=== PATIENT | female | born 1970 | race Caucasian/White ===

== ENCOUNTER 2016-10-14 05:52 | Emergency (ER) | payer OTHER ==
[~2016-10-14] VITALS: Ht 170.2 cm; Wt 78.0 kg
[2016-10-14 05:55] VITALS: BP 179/139; PULSE 115; RESP 28; O2SAT 94
[2016-10-14 06:11] VITALS: BP 129/83; PULSE 100; RESP 30; TEMP 98.9; O2SAT 89
[2016-10-14] MEDS ORDERED: SODIUM CHLORIDE 0.9% FLUSH 5 ML FLUSH IVF PRN (06:15)
[2016-10-14] MEDS ORDERED: methylPREDNISolone SOD SUCC 125 MG/2 ML VIAL IVP ONE (06:15)
[2016-10-14] MEDS: RESP: ALBUTEROL 2.5 MG/IPRATROPIUM 0.5 MG NEB (SCH) INH ×2 (06:17→06:18)
[2016-10-14 06:27] VITALS: O2SAT 97
--- NOTE | 2016-10-14 06:31 | RADRPT ---
EXAM DATE/TIME: 10/14/2016 06:09 [facility] COMPARISON: No previous studies available for comparison. INDICATIONS : Shortness of breath. MEDICAL HISTORY : Asthma. SURGICAL HISTORY : None. ENCOUNTER: Initial ACUITY: 1 day PAIN SCORE: 0/10 LOCATION: Bilateral chest FINDINGS: A single view of the chest demonstrates the lungs to be symmetrically aerated without evidence of mas s, infiltrate or effusion. The cardiomediastinal contours are unremarkable. Osseous structures are intact. CONCLUSION: No acute disease. Toni Olmstead MD on October 14, 2016 at 6:30 Board Certified Radiologist. This report was verified electronically.
[2016-10-14 06:42] VITALS: BP 169/78; PULSE 95; RESP 24; O2SAT 100
--- NOTE | 2016-10-14 06:43 | PD ---
HPI Chief Complaint: Respiratory Distress Time Seen by Provider: 06:11 Travel History International Travel<30 days: No Contact w/Intl Traveler<30days: No Traveled to known affect area: No History of Present Illness HPI 46 yo F reports a history of COPD. She woke up quite dyspneic. Her inhaler did not help. She denies chest pain. She has not taken steroids for at least 2 months. Location pulmonary. Onset somewhat sudden. Severity moderate. Timing constant. PFSH Past Medical History COPD: Yes Social History Tobacco Use: Yes (cigarrettes then e-cigarettes times last 7 years) Allergies-Medications (Allergen,Severity, Reaction): Coded Allergies: No Known Allergies (Unverified , 10/14/16) Review of Systems Except as stated in HPI: all other systems reviewed are Neg Physical Exam Narrative GENERAL: 46-year-old female mildly dyspneic SKIN: Warm and dry. HEAD: Atraumatic. Normocephalic. EYES: Pupils equal and round. No scleral icterus. No injection or drainage. ENT: No nasal bleeding or discharge. Mucous membranes pink and moist. NECK: Trachea midline. No JVD. CARDIOVASCULAR: Tachycardia. Regular rhythm. RESPIRATORY: Tachypnea. Wheezing present. GASTROINTESTINAL: Abdomen soft, non-tender, nondistended. Hepatic and splenic margins not palpable. MUSCULOSKELETAL: No obvious deformities. No clubbing. No cyanosis. No edema. NEUROLOGICAL: Awake and alert. No obvious cranial nerve deficits. Motor grossly within normal limits. Normal speech. PSYCHIATRIC: Appropriate mood and affect; insight and judgment normal. Data Data Last Documented VS Vital Signs Date Time Temp Pulse Resp B/P Pulse Ox O2 Delivery O2 Flow Rate FiO2 10/14/16 06:27 97 Nasal Cannula 2.00 10/14/16 06:11 98.9 100 30 129/83 Vital signs reviewed Orders Complete Blood Count With Diff (10/14/16 06:11) Basic Metabolic Panel (Bmp) (10/14/16 06:11) Iv Access Insert/Monitor (10/14/16 06:11) Ecg Monitoring (10/14/16 06:11) Oximetry (10/14/16 06:11) Oxygen Administration (10/14/16 06:11) Chest, Single Ap (10/14/16 06:11) Sodium Chloride 0.9% Flush (Ns Flush) (10/14/16 06:15) Methylprednisolone So Succ Inj (Solumedr (10/14/16 06:15) Albuterol-Ipratropium Neb (Duoneb Neb) (10/14/16 06:15) MDM Medical Decision Making Medical Screen Exam Complete: Yes Emergency Medical Condition: Yes Medical Record Reviewed: Yes Differential Diagnosis Asthma exacerbation, pneumonia, pneumothorax, COPD exacerbation Narrative Course Solu-Medrol and 3 rounds of breathing treatments started. Oncoming provider to follow-up blood work and disposition patient appropriately. Jose James MD Oct 14, 2016 06:43
[2016-10-14 07:07] LABS: AUTOMATED NEUTROPHIL # 5.3 TH/MM3 (1.8-7.7); BASOPHIL # 0.1 TH/MM3 (0-0.2); BASOPHIL % 0.8 % (0.0-2.0); EOSINOPHIL # 0.4 TH/MM3 (0-0.4); EOSINOPHIL % 4.4 % (0.0-4.0); HEMATOCRIT 43.7 % (35.0-46.0); HEMO FLAGS DIFF FINAL; LYMPH % 35.7 % (9.0-44.0); LYMPHOCYTE # 3.6 TH/MM3 (1.0-4.8); MEAN CORPUSCULAR HEMOGLOBIN 27.4 PG (27.0-34.0); MEAN CORPUSCULAR HGB CONC 33.8 % (32.0-36.0); MONO % 5.9 % (0.0-8.0); NEUT % 53.2 % (16.0-70.0); PLATELET COUNT 243 TH/MM3 (150-450); RED BLOOD COUNT 5.39 MIL/MM3 (4.00-5.30); RED CELL DISTRIBUTION WIDTH 13.8 % (11.6-17.2)
[2016-10-14] MEDS ORDERED: FLUTI110I INH (07:28)
[2016-10-14] MEDS ORDERED: VENTAER INH (07:28)
[2016-10-14] MEDS ORDERED: PRED20 PO (07:28)
--- NOTE | 2016-10-14 07:28 | PD ---
Physical Exam Narrative Received sign out from previous provider to reevaluate and disposition. 46yo F with COPD here with sob. Pt reevaluated at bedside after duonebs and methylprednisolone 125mg IV. States she is feeling much better and speaking in complete sentences. Pt is saturating at 93-94% on RA and has mild end expiratory wheezing bilaterally. No retractions. Labs reviewed, no leukocytosis. BMP unremarkable. CXR showed no acute disease. Pt wants to go home and agreed to return if symptoms worsen. Return precautions given. Data Data Last Documented VS Vital Signs Date Time Temp Pulse Resp B/P Pulse Ox O2 Delivery O2 Flow Rate FiO2 10/14/16 07:27 98 Nasal Cannula 2 10/14/16 06:42 95 24 169/78 10/14/16 06:11 98.9 Orders Complete Blood Count With Diff (10/14/16 06:11) Basic Metabolic Panel (Bmp) (10/14/16 06:11) Iv Access Insert/Monitor (10/14/16 06:11) Ecg Monitoring (10/14/16 06:11) Oximetry (10/14/16 06:11) Oxygen Administration (10/14/16 06:11) Chest, Single Ap (10/14/16 06:11) Sodium Chloride 0.9% Flush (Ns Flush) (10/14/16 06:15) Methylprednisolone So Succ Inj (Solumedr (10/14/16 06:15) Albuterol-Ipratropium Neb (Duoneb Neb) (10/14/16 06:15) Electrocardiogram (10/14/16 06:23) Labs Laboratory Tests Test 10/14/16 06:41 White Blood Count 10.0 TH/MM3 Red Blood Count 5.39 MIL/MM3 Hemoglobin 14.8 GM/DL Hematocrit 43.7 % Mean Corpuscular Volume 81.0 FL Mean Corpuscular Hemoglobin 27.4 PG Mean Corpuscular Hemoglobin 33.8 % Concent Red Cell Distribution Width 13.8 % Platelet Count 243 TH/MM3 Mean Platelet Volume 9.0 FL Neutrophils (%) (Auto) 53.2 % Lymphocytes (%) (Auto) 35.7 % Monocytes (%) (Auto) 5.9 % Eosinophils (%) (Auto) 4.4 % Basophils (%) (Auto) 0.8 % Neutrophils # (Auto) 5.3 TH/MM3 Lymphocytes # (Auto) 3.6 TH/MM3 Monocytes # (Auto) 0.6 TH/MM3 Eosinophils # (Auto) 0.4 TH/MM3 Basophils # (Auto) 0.1 TH/MM3 CBC Comment DIFF FINAL Differential Comment Sodium Level 137 MEQ/L Potassium Level 4.0 MEQ/L Chloride Level 104 MEQ/L Carbon Dioxide Level 25.2 MEQ/L Anion Gap 8 MEQ/L Blood Urea Nitrogen 18 MG/DL Creatinine 0.82 MG/DL Estimat Glomerular Filtration 74 ML/MIN Rate Random Glucose 112 MG/DL Calcium Level 9.6 MG/DL MDM Supervised Visit with JOSE LUIS: No Diagnosis Primary Impression: COPD exacerbation Patient Instructions: General Instructions Departure Forms: Tests/Procedures Additional Instruction: Please follow up with your PMD in 3-7 days. Return to the ED if symptoms worsen. Med/Other Pt SpecificInfo: Prescription(s) given Scripts Fluticasone 12 GM Inh (Flovent Hfa 12 GM Inh)110 Mcg/Act Inh2 Puff INH BID #1 INHALER Ref 0 Prov:Tamar Peace DO 10/14/16 Prednisone 20 Mg Tab20 Mg PO BID 5 Days Ref 0 Prov:Tamar Peace DO 10/14/16 Albuterol 18 GM Inh (Ventolin Hfa 18 GM Inh)90 Mcg/Act Aer2 Puff INH Q4H PRN ( SHORTNESS OF BREATH) #1 INHALER Ref 0 Prov:Tamar Peace DO 10/14/16 Tamar Peace DO Oct 14, 2016 07:28
[2016-10-14 07:31] LABS: BICARBONATE 25.2 MEQ/L (21.0-32.0)
[2016-10-14 08:24] VITALS: O2SAT 92
--- NOTE | 2016-10-14 17:05 | EKG ---
Date Performed: 10/14/2016 Time Performed: 06:23:23 PTAGE: 46 years EKG: Sinus rhythm NORMAL ECG NO PREVIOUS TRACING DOCTOR: Eyad Santamaria Interpretating Date/Time 10/14/2016 17:02:14
== END 2016-10-14 08:39 | disposition home or self-care (01) ==
LOC: NEPE 05:52
DX: J44.1 Chronic obstructive pulmonary disease with (acute) exacerbation (principal); F17.200 Nicotine dependence, unspecified, uncomplicated; R06.82 Tachypnea, not elsewhere classified
CPT/HCPCS: 71010; 80048; 85025; 93005; 94640; 94664; 96374; 99283; J2930

== ENCOUNTER → 2016-12-30 | Outpatient (CLI) | payer OTHER ==
[~2016-12-30] MED LIST: ALBU0.08 NEB; AZIT250T3 PO; FLUT1INH7 INH; FLUTI110I INH; HYDR12.57 PO; METF500T PO; NEBULIZER1 MI1; PRED-503 PO; PRED20 PO; VENTAER INH
--- NOTE | 2017-01-01 10:36 | RSPPFT ---
DATE OF PROCEDURE: 12/30/16 COMMENTS: Spirometry show FVC of 3.7 at 101% of predicted, FEV1 of 2.0 at 71%, FEV1/FVC ratio is decreased. Flow is decreased at FEF 25, FEF 50, FEF 75 and FEF 25-75. There is no response after bronchodilator treatment. Lung volumes show residual volume is increased. TLC is normal. Diffusion capacity is normal. Flow volume loop indicates terminal airways obstruction. IMPRESSION: 1. Mild small airways obstructive lung disease. 2. No response after bronchodilator treatment. 3. Lung volumes show mild hyperinflation. 4. Diffusion capacity is normal.
== END ==
LOC: HRSP 09:58
PROVIDERS: ATTEND Specialist
DX: J44.9 Chronic obstructive pulmonary disease, unspecified (principal)
CPT/HCPCS: 94060; 94726; 94729

== ENCOUNTER 2017-01-20 10:32 | Emergency (ER) | payer OTHER ==
[~2017-01-20] VITALS: Ht 167.6 cm; Wt 100.0 kg
[~2017-01-20 10:32] MED LIST changes: -ALBU0.08 NEB; -AZIT250T3 PO; -FLUT1INH7 INH; -HYDR12.57 PO; -METF500T PO; -NEBULIZER1 MI1; -PRED-503 PO
[2017-01-20 10:39] VITALS: BP 169/91; PULSE 107; RESP 18; TEMP 97.9; O2SAT 93
[2017-01-20] MEDS ORDERED: FLUT1INH7 INH (10:48)
[2017-01-20] MEDS ORDERED: HYDR12.57 PO (10:48)
[2017-01-20] MEDS ORDERED: METF500T PO (10:48)
[2017-01-20] MEDS ORDERED: SODIUM CHLORIDE 0.9% FLUSH 10 ML FLUSH IVF PRN (11:00)
[2017-01-20 11:08] VITALS: RESP 20; O2SAT 94
--- NOTE | 2017-01-20 11:20 | RADRPT ---
EXAM DATE/TIME: 01/20/2017 10:59 [facility] COMPARISON: CHEST SINGLE AP, October 14, 2016, 6:09. INDICATIONS : Short of breath for several days. MEDICAL HISTORY : Asthma. SURGICAL HISTORY : None. ENCOUNTER: Initial ACUITY: 3 days PAIN SCORE: 0/10 LOCATION: Bilateral chest FINDINGS: A single view of the chest demonstrates the lungs to be symmetrically aerated without evidence of mas s, infiltrate or effusion. The cardiomediastinal contours are unremarkable. Osseous structures are intact. CONCLUSION: No acute disease. Dominic Ashrfa MD on January 20, 2017 at 11:17 Board Certified Radiologist. This report was verified electronically.
--- NOTE | 2017-01-20 11:43 | PD ---
HPI Chief Complaint: Respiratory Symptoms Time Seen by Provider: 10:47 Travel History International Travel<30 days: No Contact w/Intl Traveler<30days: No Traveled to known affect area: No History of Present Illness HPI So 46 year-old woman presents to the emergency department complaining of shortness of breath. She's been sick with sore throat body aches and fever for the past several days. She started having increasing cough. She is a history of asthma as well as "early COPD". Over the past her today she had increasing shortness of breath. She's had some chills but no definite fever. She states this feels similar to when she's had asthma attacks in the past. She also had some anxiety and panic attack-like episode this morning. She normally comes to the hospital once or twice a year with trouble with her breathing. She otherwise seems well controlled on her Ida and Ventolin. History Past Medical History Narrative Medical Asthma/COPD LMP: 01/07/2017 Past Surgical History Surgical History: No Previous Surgery Social History Alcohol Use: Yes (rare) Tobacco Use: Yes (cigarrettes then e-cigarettes times last 7 years) Allergies-Medications (Allergen,Severity, Reaction): Coded Allergies: No Known Allergies (Unverified , 01/20/17) Reported Meds & Prescriptions Reported Meds & Active Scripts Active Ventolin Hfa 18 GM Inh (Albuterol Sulfate) 90 Mcg/Act Aer 2 Puff INH Q4H PRN Reported Breo Ellipta Inh (Fluticasone/Vilanterol) 200-25 Mcg/Act Inh 1 Puff INH DAILY Use daily at the same time. Hydrochlorothiazide 12.5 Mg Cap 12.5 Mg PO DAILY Metformin (Metformin HCl) 500 Mg Tab 500 Mg PO DAILY With a meal Review of Systems Except as stated in HPI: all other systems reviewed are Neg Physical Exam Narrative GENERAL: 38 year-old woman, little bit anxious appearing, no significant respiratory distress at this time. SKIN: Focused skin assessment warm/dry. NECK: Trachea midline. No JVD. CARDIOVASCULAR: Regular rate and rhythm. No murmur appreciated. RESPIRATORY: Lungs a squeaking wheezes. Good air movement. GASTROINTESTINAL: Abdomen soft, non-tender, nondistended. Hepatic and splenic margins not palpable. MUSCULOSKELETAL: No obvious deformities. No clubbing. No cyanosis. No edema. NEUROLOGICAL: Awake and alert. No obvious cranial nerve deficits. Motor grossly within normal limits. Normal speech. PSYCHIATRIC: Appropriate mood and affect; insight and judgment normal. Data Data Last Documented VS Vital Signs Date Time Temp Pulse Resp B/P Pulse Ox O2 Delivery O2 Flow Rate FiO2 01/20/17 11:08 94 Nasal Cannula 2 01/20/17 11:08 20 01/20/17 10:39 97.9 107 169/91 Orders Complete Blood Count With Diff (01/20/17 10:57) Comprehensive Metabolic Panel (01/20/17 10:57) Influenzae A/B Antigen (01/20/17 10:57) Iv Access Insert/Monitor (01/20/17 10:57) Ecg Monitoring (01/20/17 10:57) Oximetry (01/20/17 10:57) Oxygen Administration (01/20/17 10:57) Chest, Single Ap (01/20/17 10:57) Sodium Chloride 0.9% Flush (Ns Flush) (01/20/17 11:00) Albuterol-Ipratropium Neb (Duoneb Neb) (01/20/17 11:45) Azithromycin (Zithromax) (01/20/17 13:15) Labs Laboratory Tests Test 01/20/17 11:25 White Blood Count 6.5 TH/MM3 Red Blood Count 4.98 MIL/MM3 Hemoglobin 13.6 GM/DL Hematocrit 40.6 % Mean Corpuscular Volume 81.5 FL Mean Corpuscular Hemoglobin 27.3 PG Mean Corpuscular Hemoglobin 33.5 % Concent Red Cell Distribution Width 14.1 % Platelet Count 165 TH/MM3 Mean Platelet Volume 9.0 FL Neutrophils (%) (Auto) 59.8 % Lymphocytes (%) (Auto) 25.8 % Monocytes (%) (Auto) 11.0 % Eosinophils (%) (Auto) 2.7 % Basophils (%) (Auto) 0.7 % Neutrophils # (Auto) 3.9 TH/MM3 Lymphocytes # (Auto) 1.7 TH/MM3 Monocytes # (Auto) 0.7 TH/MM3 Eosinophils # (Auto) 0.2 TH/MM3 Basophils # (Auto) 0.0 TH/MM3 CBC Comment DIFF FINAL Differential Comment Sodium Level 140 MEQ/L Potassium Level 3.6 MEQ/L Chloride Level 107 MEQ/L Carbon Dioxide Level 25.1 MEQ/L Anion Gap 8 MEQ/L Blood Urea Nitrogen 8 MG/DL Creatinine 0.80 MG/DL Estimat Glomerular Filtration 77 ML/MIN Rate Random Glucose 93 MG/DL Calcium Level 9.1 MG/DL Total Bilirubin 0.2 MG/DL Aspartate Amino Transf 21 U/L (AST/SGOT) Alanine Aminotransferase 33 U/L (ALT/SGPT) Alkaline Phosphatase 61 U/L Total Protein 7.4 GM/DL Albumin 3.9 GM/DL [facility] Medical Decision Making Medical Screen Exam Complete: Yes Emergency Medical Condition: Yes Interpretation(s) Chest x-ray: No acute disease. Differential Diagnosis Asthma exacerbation, pneumonia, URI, COPD, PE, ACS, other Narrative Course Medical decision making INITIAL cause a 46-year-old woman with a history of asthma presents emergent from her URI symptoms and asthma exacerbation. She looks well. She has some anxiety symptoms. We'll check x-ray, flu, continue bronchodilator. She was brought by EMS receive bronchitis and steroids in route. She somewhat improved already. Reassess. FINAL: Patient feeling significantly improved. Saturations on the low 90s. She does have a history of tobacco use and a diagnosis of early COPD. She states she still feels little bit when it when she walks around. She was given the option of discharge home versus observation the hospital. She preferred discharge home. She would like a prescription for a nebulizer as this is helped her a lot. She does agree to return for any worsening symptoms which I think is reasonable. Diagnosis Primary Impression: COPD exacerbation Patient Instructions: General Instructions Additional Instructions: Follow-up with your primary doctor in the next 2-4 days. Continue albuterol every 4-6 hours until symptoms resolve. Take steroids as prescribed. Take azithromycin as prescribed. Return to the emergency department immediately for any new or worsening symptoms. Med/Other Pt SpecificInfo: Prescription(s) given Scripts Prednisone (Deltasone)20 Mg Tab40 Mg PO DAILY 10 Days Prov:Veto Andrews MD 01/20/17 Azithromycin 250 Mg [id number] Mg PO DAILY 4 Days Prov:Veto Andrews MD 01/20/17 Albuterol Neb 2.5 Mg/3 Ml Neb2.5 Mg NEB Q4HR NEB PRN (SHORTNESS OF BREATH) #60 NEBULE Prov:Veto Andrews MD 01/20/17 Albuterol 18 GM Inh (Ventolin Hfa 18 GM Inh)90 Mcg/Act Aer2 Puff INH Q4-6H PRN ( SHORTNESS OF BREATH) #1 INHALER Prov:Veto Andrews MD 01/20/17 Disposition: 01 DISCHARGE HOME Condition: Stable Veto Andrews MD January 20, 2017 11:43
[2017-01-20] MEDS: RESP: ALBUTEROL 2.5 MG/IPRATROPIUM 0.5 MG NEB (SCH) INH ×3 (11:47→11:50)
[2017-01-20 11:50] LABS: AUTOMATED NEUTROPHIL # 3.9 TH/MM3 (1.8-7.7); BASOPHIL % 0.7 % (0.0-2.0); EOSINOPHIL # 0.2 TH/MM3 (0-0.4); EOSINOPHIL % 2.7 % (0.0-4.0); HEMATOCRIT 40.6 % (35.0-46.0); HEMO FLAGS DIFF FINAL; LYMPH % 25.8 % (9.0-44.0); LYMPHOCYTE # 1.7 TH/MM3 (1.0-4.8); MEAN CELL VOLUME 81.5 FL (80.0-100.0); MEAN CORPUSCULAR HEMOGLOBIN 27.3 PG (27.0-34.0); MEAN CORPUSCULAR HGB CONC 33.5 % (32.0-36.0); NEUT % 59.8 % (16.0-70.0); PLATELET COUNT 165 TH/MM3 (150-450); RED BLOOD COUNT 4.98 MIL/MM3 (4.00-5.30); RED CELL DISTRIBUTION WIDTH 14.1 % (11.6-17.2); WHITE BLOOD COUNT 6.5 TH/MM3 (4.0-11.0)
[2017-01-20 12:03] LABS: ANION GAP 8 MEQ/L (5-15); AST (GOT) 21 U/L (15-37); BICARBONATE 25.1 MEQ/L (21.0-32.0); BLOOD UREA NITROGEN 8 MG/DL (7-18); CHLORIDE 107 MEQ/L (98-107); GLOMERULAR FILTRATION RATE 77 ML/MIN (>89); POTASSIUM 3.6 MEQ/L (3.5-5.1); SODIUM (NA) 140 MEQ/L (136-145)
[2017-01-20 12:06] LABS: ALKALINE PHOSPHATASE 61 U/L (45-117); ALT (GPT) 33 U/L (10-53); TOTAL BILIRUBIN ADULT 0.2 MG/DL (0.2-1.0)
[2017-01-20] MEDS ORDERED: AZIT250T3 PO (13:09)
[2017-01-20] MEDS ORDERED: ALBU0.08 NEB (13:09)
[2017-01-20] MEDS ORDERED: VENTAER INH (13:09)
[2017-01-20] MEDS ORDERED: PRED-503 PO (13:09)
[2017-01-20] MEDS ORDERED: AZITHROMYCIN 250 MG TAB PO ONE (13:15)
[2017-01-20] MEDS ORDERED: NEBULIZER1 MI1 (14:08)
== END 2017-01-20 13:39 | disposition home or self-care (01) ==
LOC: NEPD 10:32
DX: J44.1 Chronic obstructive pulmonary disease with (acute) exacerbation (principal); J45.909 Unspecified asthma, uncomplicated; F41.0 Panic disorder [episodic paroxysmal anxiety]; Z87.891 Personal history of nicotine dependence
CPT/HCPCS: 71010; 80053; 85025; 87804; 94640; 94664